=== PATIENT | male | born 1950 | race Caucasian/White ===

== ENCOUNTER → 2023-08-12 | Outpatient (CLI) | payer MEDICARE | LOC: LAB 15:36 → LAB SHORT 15:36 | DX: D48.5 Neoplasm of uncertain behavior of skin (principal) | CPT/HCPCS: 88304; 88305 ==

== ENCOUNTER 2023-11-05 11:37 | Observation (INO) | payer MEDICARE ==
[~2023-11-05] VITALS: Ht 188 cm; Wt 79.7 kg
[2023-11-05 12:25] LABS: BASOPHILS ABSOLUTE AUTO 0.07 K/mm3 (0.00-0.23); BASOPHILS PERCENT AUTO 1 % (0-2); EOSINOPHILS ABSOLUTE AUTO 0.15 K/mm3 (0.00-0.68); EOSINOPHILS PERCENT AUTO 2 % (0-6); Hematocrit 42.1 % (37.0-53.0); Hemoglobin 14.1 g/dL (13.5-17.5); IMMATURE GRAN ABSOLUTE AUTO 0.04 K/mm3 (0.00-0.10); IMMATURE GRAN PERCENT AUTO 0 % (0-1); LYMPHOCYTES ABSOLUTE AUTO 0.47 K/mm3 (0.84-5.20); LYMPHOCYTES PERCENT AUTO 5 % (21-46); MONOCYTES ABSOLUTE AUTO 0.55 K/mm3 (0.16-1.47); MONOCYTES PERCENT AUTO 6 % (4-13); Mean Corpuscular HGB 30.9 pg (26.0-34.0); Mean Corpuscular HGB Conc 33.5 g/dL (31.5-36.5); Mean Corpuscular Volume 92 fL (80-100); Mean Platelet Volume 9.5 fL (9.1-12.4); NEUTROPHILS ABSOLUTE AUTO 8.25 K/mm3 (1.96-9.15); NEUTROPHILS PERCENT AUTO 87 % (41-73); Platelet Count 215 K/mm3 (150-400); RDW Coefficient Variation 12.7 % (11.7-14.2); RDW Standard Deviation 43.1 fL (35.1-46.3); Red Blood Cell Count 4.56 M/mm3 (4.30-5.90); White Blood Cell Count 9.53 K/mm3 (4.00-11.30)
[2023-11-05 12:39] LABS: Albumin, Blood 3.5 g/dL (3.4-5.0); Bilirubin, Total 0.5 mg/dL (0.1-1.0); Calcium, Blood 9.6 mg/dL (8.5-10.1); Creatinine, Blood 0.73 mg/dL (0.60-1.20); Globulin, Blood 3.5 g/dL (2.2-4.0); Potassium, Blood 4.4 mmol/L (3.5-5.5)
[2023-11-05] MEDS ORDERED: Acetaminophen 325 MG TABLET PO PRN (19:05)
[2023-11-05] MEDS ORDERED: Ondansetron HCl 2 MG / ML 2ML Vial IV PRN (19:05)
[2023-11-05 21:22] VITALS: BP 170/98
--- NOTE | 2023-11-06 00:47 | NUR ---
Arrived by wheelchair from ER dept, transferred with min assistance. During admission Patient reports tired and did not want to anwser questions unless pertinent to immediate care. A/o x4 Denies pain, c/o impaired vision; difficulty focusing. Noted Right eye with some nystagmus, Left eye sluggish to light, facial symmetry intact, hand physiatrist and exrtremity strength equal wnl. Oriented to room, call light and fall precautions pt verbalized understanding. Fall precautions in place.
[2023-11-06 03:49] VITALS: BP 142/70
[2023-11-06 05:47] LABS: BASOPHILS ABSOLUTE AUTO 0.07 K/mm3 (0.00-0.23); BASOPHILS PERCENT AUTO 1 % (0-2); EOSINOPHILS ABSOLUTE AUTO 0.31 K/mm3 (0.00-0.68); EOSINOPHILS PERCENT AUTO 6 % (0-6); Hematocrit 41.6 % (37.0-53.0); Hemoglobin 13.9 g/dL (13.5-17.5); IMMATURE GRAN ABSOLUTE AUTO 0.02 K/mm3 (0.00-0.10); IMMATURE GRAN PERCENT AUTO 0 % (0-1); LYMPHOCYTES ABSOLUTE AUTO 0.75 K/mm3 (0.84-5.20); LYMPHOCYTES PERCENT AUTO 14 % (21-46); MONOCYTES ABSOLUTE AUTO 0.63 K/mm3 (0.16-1.47); MONOCYTES PERCENT AUTO 11 % (4-13); Mean Corpuscular HGB 30.9 pg (26.0-34.0); Mean Corpuscular HGB Conc 33.4 g/dL (31.5-36.5); Mean Corpuscular Volume 92 fL (80-100); Mean Platelet Volume 9.6 fL (9.1-12.4); NEUTROPHILS ABSOLUTE AUTO 3.79 K/mm3 (1.96-9.15); NEUTROPHILS PERCENT AUTO 68 % (41-73); Platelet Count 204 K/mm3 (150-400); RDW Coefficient Variation 12.5 % (11.7-14.2); RDW Standard Deviation 42.5 fL (35.1-46.3); White Blood Cell Count 5.57 K/mm3 (4.00-11.30)
[2023-11-06 06:29] LABS: Albumin, Blood 3.3 g/dL (3.4-5.0); Bilirubin, Total 0.8 mg/dL (0.1-1.0); Bun/Creatinine Ratio 14.1 (12.0-20.0); Calcium, Blood 9.3 mg/dL (8.5-10.1); Creatinine, Blood 0.78 mg/dL (0.60-1.20); Globulin, Blood 3.2 g/dL (2.2-4.0); Magnesium, Blood 2.2 mg/dL (1.6-2.4); Potassium, Blood 3.8 mmol/L (3.5-5.5); Total Protein, Blood 6.5 g/dL (6.4-8.2)
--- NOTE | 2023-11-06 06:38 | NUR ---
SHIFT SUMMARY A/O 4, NO C/O PAIN, ASSISTED TO BATHROOM 0250 TO VOID PT REPORTS IMPROVED VISION, CAN NOW READ WRISTBAND WHICH COULD NOT READ EARLIER. fALL PRECAUTIONS IN PLACE BED ALARM CALL LIGHT W/N REACH.
[2023-11-06 07:15] VITALS: BP 140/79
[2023-11-06] MEDS ORDERED: Enoxaparin 40 MG/0.4 ML SYR SC SCH (09:00)
[2023-11-06 15:04] VITALS: BP 177/92
[2023-11-06] MEDS ORDERED: Clopidogrel Bisulfate 75 MG Tab PO SCH (15:25)
[2023-11-06] MEDS ORDERED: Aspirin 81 MG Chew PO SCH (15:30)
[2023-11-06] MEDS ORDERED: Losartan Potassium 25 MG Tab PO ONE (16:40)
--- NOTE | 2023-11-06 19:14 | NUR ---
report received verified. a/o x 4 very pleasent stating he is feeling much better today and wants to go home if everything is fine with mri, pt has colonoscopy in the morning. 1200 pt taken for mri justa well. eating lunch, mno change in condition. [address] renee about speaking with pt regarding mri. dc orders given, but never came to see pt, i called dr renee and expressed the pt frustration. md gave option to stay and so i spoke with pt recommending to stay and cancel his colonoscopy, the dr will be in with pt to speak about his mri and possibly discharge in the morning. pt medicated with new medication and ate dinner.
[2023-11-06] MEDS ORDERED: Atorvastatin 40 MG Tab PO SCH (21:00)
[2023-11-07 02:48] VITALS: BP 138/80
[2023-11-07 06:10] LABS: BASOPHILS PERCENT AUTO 2 % (0-2); EOSINOPHILS PERCENT AUTO 6 % (0-6); Hematocrit 43.7 % (37.0-53.0); Hemoglobin 14.9 g/dL (13.5-17.5); IMMATURE GRAN ABSOLUTE AUTO 0.02 K/mm3 (0.00-0.10); IMMATURE GRAN PERCENT AUTO 0 % (0-1); LYMPHOCYTES ABSOLUTE AUTO 0.82 K/mm3 (0.84-5.20); LYMPHOCYTES PERCENT AUTO 17 % (21-46); MONOCYTES ABSOLUTE AUTO 0.61 K/mm3 (0.16-1.47); MONOCYTES PERCENT AUTO 12 % (4-13); Mean Corpuscular HGB 31.2 pg (26.0-34.0); Mean Corpuscular HGB Conc 34.1 g/dL (31.5-36.5); Mean Corpuscular Volume 91 fL (80-100); Mean Platelet Volume 9.6 fL (9.1-12.4); NEUTROPHILS ABSOLUTE AUTO 3.12 K/mm3 (1.96-9.15); NEUTROPHILS PERCENT AUTO 63 % (41-73); Platelet Count 219 K/mm3 (150-400); RDW Coefficient Variation 12.5 % (11.7-14.2); RDW Standard Deviation 41.3 fL (35.1-46.3); Red Blood Cell Count 4.78 M/mm3 (4.30-5.90); White Blood Cell Count 4.97 K/mm3 (4.00-11.30)
--- NOTE | 2023-11-07 06:35 | NUR ---
summary shift a/o 4 no c/o pain, reports improved vision, refused bed alar , fall prcautions education rendered, pt reverbalized understanding, continued refuse for bed alarm, rounding bed ow position items and call light w/n reach.
[2023-11-07 06:41] LABS: Alanine Aminotransfer (ALT/SGP 22 U/L (12-78); Albumin, Blood 3.6 g/dL (3.4-5.0); Albumin/Globulin Ratio 1.1 (0.8-1.8); Alk Phos 78 U/L (50-136); Anion Gap 9 mmol/L (3-11); Aspartate Aminotrans (AST/SGOT 21 U/L (12-37); Blood Urea Nitrogen 13 mg/dL (8-24); Bun/Creatinine Ratio 16.5 (12.0-20.0); CHOL/HDL RATIO 3.1; CO2, Blood 26 mmol/L (21-32); Calcium, Blood 9.7 mg/dL (8.5-10.1); Chloride, Blood 109 mmol/L (98-108); Cholesterol 187 mg/dL (50-200); Creatinine, Blood 0.79 mg/dL (0.60-1.20); Globulin, Blood 3.2 g/dL (2.2-4.0); Glomerular Filtration Rate 94 (60-); Glucose, Blood 97 mg/dL (70-99); HDL Cholesterol 61 mg/dL (>39); LDL/HDL RATIO 1.8; Low Density Lipoprotein Chol 111 mg/dL (0-110); Potassium, Blood 3.8 mmol/L (3.5-5.5); Sodium, Blood 140 mmol/L (136-145); Total Protein, Blood 6.8 g/dL (6.4-8.2); Triglycerides 75 mg/dL (30-160); Very Low Density Lipoprot Chol 15 mg/dL (6-32)
[2023-11-07 07:21] VITALS: BP 142/86
[2023-11-07] MEDS ORDERED: Losartan Potassium 25 MG Tab PO SCH (09:00)
[2023-11-07] MEDS ORDERED: CLOP75 PO (12:34)
[2023-11-07] MEDS ORDERED: ASPI81CH PO (12:34)
[2023-11-07] MEDS ORDERED: ATOR40TA PO (12:34)
[2023-11-07] MEDS ORDERED: LOSA25 PO (12:35)
[2023-11-07 12:54] VITALS: BP 128/68
--- NOTE | 2023-11-07 13:34 | NUR ---
PT DISCHARGED @1325 VIA WHEELCHAIR WITH . MEDICATIONS FAXED TO [facility]. IV IN LHA AND RAC REMOVED BY [employer]INE [employer]TER W/O COMPLICATIONS.
== END 2023-11-07 13:20 | disposition home or self-care (01) ==
LOC: ER 11:37 → MEDS 11:38 → ER 19:03 → MEDS 19:03 → ER 11-06 11:37 → MEDS 11-06 11:37
PROVIDERS: Emergency Medicine; ADMIT Internal Medicine
DX: I63.9 Cerebral infarction, unspecified (principal); I10 Essential (primary) hypertension; M17.10 Unilateral primary osteoarthritis, unspecified knee
CPT/HCPCS: 36415; 70450; 70496; 70498; 70551; 80053; 80061; 83036; 83735; 85025; 93005; 93010; 93306; 96372; 99285-25; A9270; G0378; J1650; Q9967

== ENCOUNTER 2024-09-27 06:12 | Day surgery (SDC) | payer MEDICARE ==
[~2024-09-27] VITALS: Ht 185.4 cm; Wt 80.1 kg
[~2024-09-27 06:12] MED LIST: ASPI81CH PO; ATOR40TA PO; CLOP75 PO; LOSA25 PO
[2024-09-27] MEDS ORDERED: NS 1,000 ML IV ONE ×2 (06:22→07:14)
[2024-09-27] MEDS ORDERED: Tranexamic Acid 100 ML IV ONE ×2 (06:22→10:45)
[2024-09-27] MEDS ORDERED: VITAMIN D5000 UNIT (06:43)
[2024-09-27] MEDS ORDERED: OxyCODONE HCL 10 MG TABCR ONE (06:59)
[2024-09-27] MEDS ORDERED: Vancomycin HCL 1,000 MG in NS 250 ML IV SCH (07:00)
[2024-09-27] MEDS ORDERED: CefTRIAXone Sodium 2,000 MG in NS 100 ML IV SCH (07:00)
[2024-09-27] MEDS ORDERED: Ondansetron HCl 2 MG / ML 2ML Vial ONE ×2 (07:01→08:19)
[2024-09-27] MEDS ORDERED: Dexamethasone Sod Phos 10 MG/ML 1ML VIAL ONE ×2 (07:01→07:51)
[2024-09-27] MEDS ORDERED: FentaNYL Citrate 50 MCG/ML 2 ML Injection ONE ×2 (07:02→07:19)
[2024-09-27] MEDS ORDERED: propofoL 0 ML IV ONE (07:04)
[2024-09-27] MEDS ORDERED: Bupivacaine 0.5% W/EPI 1:200000 SDV 30 ML Vial ONE (07:14)
[2024-09-27] MEDS ORDERED: propofoL 20 ML IV ONE (07:19)
[2024-09-27] MEDS ORDERED: Rocuronium Bromide 10 MG/ML 5ML Injection IV ONE (07:21)
[2024-09-27] MEDS ORDERED: Phenylephrine HCl 100 MCG/ML-NS 10MLSYR (1MG/10ML) ONE (07:50)
[2024-09-27] MEDS ORDERED: ePHEDrine Sulfate 50 MG/ML 1ML Injection ONE (07:56)
--- NOTE | 2024-09-27 08:17 | NUR ---
09/27/[address] PREPED SHOULDER AND ARMPIT TO ELBOW WITH ALCHOLO AND PERODIXIDE, KEMI LAROSE PREPPED HAND TO ELBOW WITH ALCOHOL AND PEROXIDE. JOSE C LAROSE PREPPED WITH CHLORAPREP FROM SURGICAL SITE TO FINGERS AND SURROUDING AREA
[2024-09-27] MEDS ORDERED: Ketorolac Tromethamine 30mg Vial ONE (08:19)
[2024-09-27] MEDS ORDERED: Sugammadex Sodium 200 MG/2ML SDV (100 MG/ML) ONE (09:49)
--- NOTE | 2024-09-27 10:46 | NUR ---
09/27/24 1046 Bonnie Thompson PT TRANSFERS TO SDU A&O, BUT DROWSY. VSS, ON RA. PT DENIES PAIN/NAUSEA. RADIOLOGY CALLED AT THIS TIME. NO VISIBLE SIGNS OF DISTRESS NOTED.
[2024-09-27 10:47] VITALS: BP 114/57
== END 2024-09-27 12:07 | disposition home or self-care (01) ==
LOC: ORSCSDS 06:12
PROVIDERS: Orthopaedic Surgery
PROC: 0RRJ00Z Replacement of Right Shoulder Joint with Reverse Ball and Socket Synthetic Substitute, Open Approach (ICD-10-PCS; principal; 2024-09-27 07:30)
DX: M19.011 Primary osteoarthritis, right shoulder (principal); Z96.612 Presence of left artificial shoulder joint; I10 Essential (primary) hypertension; Z86.73 Personal history of transient ischemic attack (TIA), and cerebral infarction without residual deficits; Z87.891 Personal history of nicotine dependence; Z96.653 Presence of artificial knee joint, bilateral; Z79.899 Other long term (current) drug therapy; Z85.21 Personal history of malignant neoplasm of larynx
CPT/HCPCS: 73030; A9270; C1713; C1776; J0696; J1100; J1885; J2371; J2405; J2704; J3010; J3370; J7030; J7050

== ENCOUNTER 2025-02-23 11:12 | Day surgery (SDC) | payer MEDICARE ==
[2025-02-02 14:42] VITALS: BP 133/81
[2025-02-23] VITALS (13 sets, daily range): BP systolic 109–143; BP diastolic 56–80
[~2025-02-23] VITALS: Ht 183 cm; Wt 79.6 kg
[~2025-02-23 11:12] MED LIST changes: +THERA-D2000 UNIT PO
[2025-02-23] MEDS ORDERED: Chlorhexidine Mouth Care 15 ML UDC MT SCH (11:40)
[2025-02-23] MEDS ORDERED: CeFAZolin Sodium 2,000 MG in NS 100 ML IV SCH ×2 (11:40→20:00)
[2025-02-23] MEDS ORDERED: Tranexamic Acid 100 ML IV SCH (11:40)
[2025-02-23] MEDS ORDERED: Ropivacaine 0.5% HCl/Pf 123.125 MG,EPINEPHrine HCL 0.25 MG,Ketorolac Tromethamine 15 MG... INFIL SCH (11:40)
[2025-02-23] MEDS ORDERED: Prochlorperazine Edisylate 10 mg Vial IV PRN (13:30)
[2025-02-23] MEDS ORDERED: Ondansetron HCl 2 MG / ML 2ML Vial IV PRN ×2 (13:30→16:35)
[2025-02-23] MEDS ORDERED: Magnesium Hydroxide Conc 10 ML UDC PO PRN (13:30)
[2025-02-23] MEDS ORDERED: Metoclopramide HCl 5MG / ML 2ML Vial IV PRN (13:30)
[2025-02-23] MEDS ORDERED: HYDROmorphone HCl/Pf 1MG SYR IV PRN ×2 (13:35→16:35)
--- NOTE | 2025-02-23 13:49 | NUR ---
History, Chart, Medications and Allergies reviewed before start of procedure. Patient up to Ambulate independently. Gait steady. Pre-Op teaching done. Pt verbalizes understanding. Patient confirms NPO status and agrees with scheduled surgery. Patient reports completing Chlorhexadine shower X2 prior to admission to hospital. Surgical site prepped with 2% Chlorhexidine cloth wipe. Patient States Post-Procedure ride home has been arranged.
[2025-02-23] MEDS ORDERED: FentaNYL Citrate 50 MCG/ML 2 ML Injection ONE ×2 (13:53→20:01)
[2025-02-23] MEDS ORDERED: Dexamethasone Sod Phos 10 MG/ML 1ML VIAL ONE (13:54)
[2025-02-23] MEDS ORDERED: Rocuronium Bromide 10 MG/ML 5ML Injection IV ONE (13:54)
[2025-02-23] MEDS ORDERED: ePHEDrine Sulfate 50 MG/ML 1ML Injection ONE (14:20)
[2025-02-23] MEDS ORDERED: Ondansetron HCl 2 MG / ML 2ML Vial ONE (15:48)
[2025-02-23] MEDS ORDERED: Sugammadex Sodium 200 MG/2ML SDV (100 MG/ML) ONE (15:48)
[2025-02-23] MEDS ORDERED: FentaNYL Citrate 50 MCG/ML 2 ML Injection IV PRN (16:35)
--- NOTE | 2025-02-23 17:36 | NUR ---
POST-OP PATIENT TO ROOM @1725 VSS, R HIP DRESSING X3 C/D/I. ICE, SCD'S, GOGO HOSE IN PLACE. PATIENT ABLE TO WIGGLE TOES, UNABLE TO LIFT LEGS YET. REPORTS DECREASED SENSATION. TO BILAT LE. IVF RUNNING. STRAIGHT CATH IN PACU OF 500. TXA GIVEN. DENIES PAIN AT THIS TIME. ALERT AND ORIENTED. CALL LIGHT IN REACH.
[2025-02-23] MEDS ORDERED: Ketorolac Tromethamine 15mg Vial IV SCH (18:00)
[2025-02-23] MEDS ORDERED: Cholecalciferol 1000 Unit Tablet (=25MCG) PO SCH (21:00)
--- NOTE | 2025-02-24 04:23 | NUR ---
SHIFT SUMMARY CINTHIA WAS ALERT AND FULLY ORIENTED ON ASSESSMENT. PT PAIN WELL CONTROLLED. SENSATION AND CIRCULATION INTACT TO BLE'S. DRESSINGS TO HIP C/D/I. PT AMBULATING AND VOIDING APPROPRIATELY. NO ACUTE EVENTS TONIGHT, NO CHANGES TO PT CONDITION. PT KERA PO INTAKE.
[2025-02-24 05:55] VITALS: BP 130/72
[2025-02-24 07:07] VITALS: BP 125/72
[2025-02-24] MEDS ORDERED: Trimethoprim/Sulfamethoxazole DS Tab PO SCH (09:00)
[2025-02-24] MEDS ORDERED: MASOPHEN500 MG PO (10:04)
--- NOTE | 2025-02-24 10:23 | NUR ---
SUMMARY ASSUMED CARE OF PT @0700. AXO4. VSS. R HIP DRESSINGS CDI, DRESSING TO R LEG CDI WELL. TELFA/TEGADERM DRESSINGS. PT STATES "LITTLE TO NO PAIN" AND STATES HIS PLEASURE WITH THE SURGICAL PROCESS. PHYSICAL THERAPY HAS SEEN PT, AMBULATED HIM AND OK'D FOR DC. DC ORDERS IN PLACE. WILL BE EDUCATING PT AND DISCHARGING HIM SHORTLY.
[2025-02-24] MEDS ORDERED: OXYC5 PO (10:29)
[2025-02-24] MEDS ORDERED: XARELTO10 M1 PO (10:33)
[2025-02-24] MEDS ORDERED: SULTRIDS PO (10:36)
[2025-02-24] MEDS ORDERED: ONDA4ODT MM (10:36)
--- NOTE | 2025-02-24 10:55 | NUR ---
PT DC'D @1057 DC INSTRUCTIONS PROVIDED TO PT & SPOUSE. POLAR PACK PACKED UP. BELONGINGS WITH . NO ACUTE CHANGES SINCE ASSUMPTION NOTE. PT DC'D, OUT OF ROOM VIA WHEELCHAIR WITH SPOUSE @0647.
== END 2025-02-24 10:55 | disposition home or self-care (01) ==
LOC: ORSCMMR 11:12 → SURS 17:19 → ORSCMMR 18:00 → SURS 23:00 → ORSCMMR 02-24 10:55
PROVIDERS: Orthopaedic Surgery
PROC: 0SR90JA Replacement of Right Hip Joint with Synthetic Substitute, Uncemented, Open Approach (ICD-10-PCS; principal; 2025-02-23 14:30)
DX: M16.11 Unilateral primary osteoarthritis, right hip (principal); I10 Essential (primary) hypertension; E78.5 Hyperlipidemia, unspecified; Z86.73 Personal history of transient ischemic attack (TIA), and cerebral infarction without residual deficits; Z79.899 Other long term (current) drug therapy; Z79.82 Long term (current) use of aspirin; Z85.21 Personal history of malignant neoplasm of larynx; Z87.891 Personal history of nicotine dependence; Z96.653 Presence of artificial knee joint, bilateral; Z96.612 Presence of left artificial shoulder joint; Z96.611 Presence of right artificial shoulder joint
CPT/HCPCS: 72170; 97110; 97116; 97161; 97165; 97535; A9270; C1713; C1776; J0166; J0690; J0735; J1100; J1885; J2405; J2704; J2795; J3010; J3373; J7050; J7120